=== PATIENT | male | born 1970 | race Caucasian/White ===

== ENCOUNTER 2019-06-27 23:38 | Emergency (ER) | payer OTHER, SELFPAY ==
[2019-06-27 23:40] VITALS: BP 170/107; PULSE 71; RESP 18; O2SAT 97
--- NOTE | 2019-06-27 23:46 | DI.RAD.S_ITS ---
PROCEDURE: XR SHOULDER LT MIN 2V INDICATIONS: possible dislocation TECHNIQUE: 2 views of the shoulder were acquired. COMPARISON: None. FINDINGS: Bones: Anterior shoulder dislocation and fracture involving at least the greater tuberosity. Soft tissues: No suspicious soft tissue calcifications. IMPRESSION: Left shoulder fracture dislocation as above. Dictated by: Catrachito Gill M.D. on 06/28/2019 at 8:17 Approved by: Catrachito Gill M.D. on 06/28/2019 at 8:19
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
--- NOTE | 2019-06-28 00:29 | DI.RAD.S_ITS ---
PROCEDURE: XR SHOULDER LT MIN 2V INDICATIONS: post reduction left shoulder dislocation TECHNIQUE: 2 views of the shoulder were acquired. COMPARISON: [facility], CR, XR SHOULDER LT MIN 2V, 06/28/2019, 0:07. FINDINGS: Bones: There has been successful reduction of the anterior subcoracoid left shoulder dislocation documented earlier same day. The fracture displacement has significantly reduced to near anatomic alignment. No suspicious bony lesions. Visualized ribs appear intact. Soft tissues: No suspicious soft tissue calcifications. IMPRESSION: Successful reduction of left shoulder dislocation, fracture displacement associated with impaction against the inferior glenoid margin has also significantly reduced to near anatomic alignment. Dictated by: Jose R Bergeron M.D. on 06/28/2019 at 9:02 Approved by: Jose R Bergeron M.D. on 06/28/2019 at 9:03
[2019-06-28] MEDS: propofoL 200 MG/20 ML VIAL 100 MG IV (01:24)
[2019-06-28 01:25] VITALS: BP 152/97; PULSE 81; RESP 21; O2SAT 97
[2019-06-28 01:36] VITALS: BP 164/84; PULSE 76; RESP 21; O2SAT 97
--- NOTE | 2019-06-28 01:39 | PC.NURSE ---
Procedural sedation done for left shoulder reduction. Pt tolerated well. 110mg propoful given in divided doses by Dr Cohen to achieve sedation.
[2019-06-28 01:48] VITALS: BP 138/79; PULSE 79; RESP 22; O2SAT 99
[2019-06-28 02:30] VITALS: BP 131/86; PULSE 78; RESP 18; O2SAT 98
== END 2019-06-28 02:40 | disposition home or self-care (01) ==
PROVIDERS: Emergency Provider Emergency Medicine
DX: S43.015A Anterior dislocation of left humerus, initial encounter (principal); S42.252A Displaced fracture of greater tuberosity of left humerus, initial encounter for closed fracture; F10.929 Alcohol use, unspecified with intoxication, unspecified; W19.XXXA Unspecified fall, initial encounter
CPT/HCPCS: 23665; 73030; 99285; 99291; J2704

== ENCOUNTER 2021-01-15 17:53 | Inpatient (IN) | payer OTHER, SELFPAY ==
[2021-01-15] VITALS (26 sets, daily range): BP systolic 104–154; BP diastolic 57–99; PULSE 57–192; RESP 22–30; TEMP 32.2–38; O2SAT 88–99; BMI 27.8
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
[2021-01-15 18:16] LABS: Add Manual Diff / Slide Review NO; Basophils Absolute Auto 100 /uL (0-100); Basophils Percent Auto 0.4 % (0-2); Eosinophils Absolute Auto 0 /uL (0-450); Hematocrit 46.8 % (41-53); Hemoglobin 15.4 g/dL (13.5-17.5); Lymphocytes Absolute Auto 1000 /uL (1100-4500); Lymphocytes Percent Auto 8.3 % (25-40); Mean Corpuscular HGB Conc 32.8 % (30-36); Mean Corpuscular Hemoglobin 31.3 PG (26-34); Mean Corpuscular Volume 95.4 fL (80-100); Monocytes Absolute Auto 1000 /uL (0-900); Monocytes Percent Auto 8.6 % (3-14); Neutrophils Absolute Auto 9600 /uL (1500-7000); Neutrophils Percent Auto 82.7 % (50-75); Platelet Count 305 X10^3/uL (150-400); Red Blood Cell Count 4.91 X10^6/uL (4.5-5.9); Red Cell Distribution Width 14.3 % (11.6-14.8); White Blood Cell Count 11.6 X10^3/uL (4.5-11.0)
[2021-01-15 18:21] LABS: Lactate (Lactic Acid) 5.7 mmol/L (0.7-2.1)
[2021-01-15 18:22] LABS: Alanine Aminotransferase 35 IU/L (<50); Albumin 4.3 g/dL (3.5-5.0); Albumin Globulin Ratio 1.6 (1.0-2.8); Alkaline Phosphatase 56 U/L (38-126); Aspartate Aminotransferase 154 IU/L (17-59); BUN Creatinine Ratio 25.6 (6-22); Bilirubin Total 0.3 mg/dL (0.2-1.3); Blood Urea Nitrogen 21 mg/dL (9-20); Carbon Dioxide 15 mmol/L (22-32); Chloride 120 mmol/L (98-107); Estimated Glomerular Filt Rate > 60.0 mL/min (>60); Ethanol (ETOH) 22 mg/dL; Globulin 2.7 g/dL (1.7-4.1); Glucose 49 mg/dL (70-100); HEMOLYSIS < 15 (0-50); Lipase 63 U/L (23-300); Potassium 4.5 mmol/L (3.4-5.1); Sodium 152 mmol/L (137-145)
[2021-01-15 18:32] LABS: Troponin I 0.115 ng/mL (0.01-0.034)
[2021-01-15] MEDS: LACTATED RINGERS 1,000 ML 1000 ML IV (18:34)
[2021-01-15 18:37] LABS: Creatine Kinase 7858 U/L (55-170)
[2021-01-15 18:45] LABS: CKMB % Relative Index 0.3 % (1.5-5.0)
--- NOTE | 2021-01-15 18:47 | PC.NURSE ---
for core temperature reading.
[2021-01-15 19:32] LABS: UR Morphine/Opiate cutoff 300 Negative (Negative); Ur Creatinine Normal (Normal); Ur Specific Gravity Normal (Normal); Urine Amphetamines Negative (Negative); Urine Barbiturates Negative (Negative); Urine Benzodiazepines Negative (Negative); Urine Cocaine Negative (Negative); Urine MDMA Negative (Negative); Urine Methadone Negative (Negative); Urine Methamphetamines Negative (Negative); Urine Oxycodone Negative (Negative); Urine Phencyclidine Negative (Negative); Urine Tetrahydrocannabinol Negative (Negative); Urine Tricyclic Antidepressant Negative (Negative); Urine pH Normal (Normal)
[2021-01-15 20:04] LABS: Reflexed Lactate in 2 Hours Y
[2021-01-15 20:14] LABS: COVID19 - ADMIT (NP swab/PCR) Negative (Negative)
[2021-01-15 20:38] LABS: INR 1.1 (0.9-1.3); Prothrombin Time 12.5 SECONDS (10.1-12.7)
[2021-01-15 20:40] LABS: PTT Partial Thromboplastin Tim 36 SECONDS (26.4-36.2)
[2021-01-15 20:43] LABS: Lactate 2HR (Lactic Acid Rflx) 2.8 mmol/L (0.7-2.1)
[2021-01-15] MEDS: LACTATED RINGERS 1,000 ML 150 ML IV (21:45)
[2021-01-15 22:52] LABS: Procalcitonin 73.8 ng/mL (<0.5)
--- NOTE | 2021-01-15 23:26 | DI.CT.S_ITS ---
PROCEDURE: CT HEAD/BRAIN WO CON INDICATIONS: confusion TECHNIQUE: Noncontrast 4.5 mm thick angled axial sections acquired from the foramen magnum to the vertex, with coronal and sagittal reformats. For radiation dose reduction, the following was used: automated exposure control, adjustment of mA and/or kV according to patient size. COMPARISON: None. FINDINGS: Image quality: Excellent. CSF spaces: Basal cisterns are patent. No extra-axial fluid collections. Ventricles are normal in size and shape. There is mild cerebral volume loss with prominence of the sulci and extra-axial spaces. Brain: No intracranial hemorrhage, mass, or mass effect. Hernandez-white matter interface appears preserved. Skull and face: Calvarium and visualized facial bones are intact, without suspicious lesions. Sinuses: Visualized sinuses demonstrated small air-fluid level in the right maxillary sinus. Remaining paranasal sinuses are clear. Mastoid air cells also appear clear. IMPRESSION: 1. No acute intracranial abnormality. 2. Mild cerebral volume loss. Dictated by: Long Hernandez M.D. on 01/16/2021 at 8:16 Approved by: Long Hernandez M.D. on 01/16/2021 at 8:18
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
[2021-01-16] VITALS (24 sets, daily range): BP systolic 101–125; BP diastolic 55–73; PULSE 56–75; RESP 16–33; TEMP 37.1–38.2; O2SAT 92–98
[2021-01-16 00:14] LABS: Transitional Epi Cells Urine 1-5/HPF (0-5/HPF); WBC Urine None Seen (0-5/HPF)
[2021-01-16 00:15] LABS: Renal Epithelial Cells Urine 0-1/HPF (0-1/HPF)
[2021-01-16 00:16] LABS: Bacteria Urine Occasional (0-1); Granular Casts Urine 1-5/LPF; Hyaline Casts Urine 0-1/LPF; Squamous Epithelial Cell Urine 0-1 /HPF (0-5/HPF)
[2021-01-16 00:17] LABS: Amorphous Sediment Urine 1+; Culture Indicated Urine Cult Not Indicated; Mucus Urine 2+ (Negative); RBC Urine 1-5/HPF (0-5/HPF)
[2021-01-16] MEDS: PIPERACILLIN/TAZO 4.5 GM in SODIUM CHLORIDE 0.9% 100 ML 25 ML IV (00:35)
[2021-01-16 01:12] LABS: Lactate (Lactic Acid) 2.4 mmol/L (0.7-2.1)
[2021-01-16 01:13] LABS: BUN Creatinine Ratio 23.9 (6-22); Blood Urea Nitrogen 22 mg/dL (9-20); Calcium 8.3 mg/dL (8.4-10.2); Carbon Dioxide 15 mmol/L (22-32); Chloride 117 mmol/L (98-107); Estimated Glomerular Filt Rate > 60.0 mL/min (>60); Glucose 87 mg/dL (70-100); HEMOLYSIS 15 (0-50); Magnesium 2.4 mg/dL (1.6-2.3); Phosphorous 4.2 mg/dL (2.5-4.5); Sodium 145 mmol/L (137-145)
[2021-01-16 01:17] LABS: Potassium 5.4 mmol/L (3.4-5.1)
[2021-01-16 01:28] LABS: Troponin I 0.245 ng/mL (0.01-0.034)
--- NOTE | 2021-01-16 01:35 | DI.ECHO.S_ITS ---
[place] +---------+ Hospital +---------+ : : [address] : : : : [phone] : : : : Phone: [phone] Echocardiogram Report + + :Name: CHADWICK PATHAK Study Date: 01/16/2021 Height: 69 in : :[facility] ReadingLocation: Weight: 188 lb : : Gender: Male BSA: 2.0 m2 : :: 1970 Age: 50 yrs BP: 113/64 mmHg: :Reason For Study: ELEVATED TROPONIN : :Ordering Physician: DMITRIY, : :RAJWINDER Performed By: Neisha Bravo : :Referring: RAJWINDER IZAGUIRRE : + + Interpretation Summary The left ventricle is normal in size and wall thickness. Left ventricular systolic function is normal. The ejection fraction is estimated to be 55-60%. There is possible mid/distal anterolateral hypokinesis. Diastolic parameters suggest probable normal left ventricular diastolic function and normal filling pressures. The right ventricle is borderline dilated. Right ventricular systolic function is at the lower limits of normal. Pulmonary artery pressures cannot be estimated because of the lack of a measurable TR jet velocity but the IVC suggests a CVP of around 15 mmHg. The left atrium is borderline dilated. Right atrial size is normal. There is no Doppler evidence for an interatrial shunt. The atrial septum is aneurysmal. There is no significant valvular heart disease. The aortic root is normal size. Procedure: A two-dimensional transthoracic echocardiogram with color flow and Doppler was performed. The study quality was technically adequate. A contrast injection of Definity was performed to improve assessment of LV function. There is no prior echocardiogram noted for this patient. The patient was in sinus rhythm with heart rates between 60-66 bpm during the exam. Left Ventricle: The left ventricle is normal in size and wall thickness. Left ventricular systolic function is normal. The ejection fraction is estimated to be 55-60%. There is possible mid/distal anterolateral hypokinesis. Diastolic parameters suggest probable normal left ventricular diastolic function and normal filling pressures. Right Ventricle: The right ventricle is borderline dilated. Right ventricular systolic function is at the lower limits of normal. Atria: The left atrium is borderline dilated. Right atrial size is normal. There is no Doppler evidence for an interatrial shunt. The atrial septum is aneurysmal. Mitral Valve: The mitral valve is normal in structure and function. There is trace mitral regurgitation. Aortic Valve: The aortic valve opens well. There is no aortic valve stenosis. No aortic regurgitation is present. Tricuspid Valve: The tricuspid valve is normal in structure and function. No tricuspid regurgitation. Pulmonary artery pressures cannot be estimated because of the lack of a measurable TR jet velocity but the IVC suggests a CVP of around 15 mmHg. Pulmonic Valve: The pulmonic valve is not well visualized. There is trace pulmonic regurgitation. There is no significant valvular heart disease. Great Vessels: The aortic root is normal size. The ascending aorta is at the upper limits of normal in size. The IVC is dilated (diameter is greater than 2.1 cm) and it collapses less than 50% with a sniff. This suggests a high right atrial pressure of 15 mm Hg. Pericardium/ Pleura There is no pericardial effusion. There is no pleural effusion. MMode/2D Measurements & Calculations LVIDd: 5.4 cm LVOT diam: 2.0 cm LVIDs: 3.2 cm Ao root diam: 3.7 cm FS: 40.1 % asc Aorta Diam: 3.4 cm IVSd: 0.98 cm Ao Arch Diam (Prox Trans): 3.0 cm LVPWd: 0.88 cm LV keyes. diameter/BSA (cm/m^2): 2.7 LV sys. diameter/BSA (cm/m^2): 1.6 LA A2 area: 22.0 cm2 RA long axis: 5.1 cm LA A4 area: 18.9 cm2 RA area: 18.2 cm2 LA length (vol): 5.1 cm RA vol: 54.8 ml LA vol: 68.6 ml RA : 27.3 ml/m2 LA vol index: 34.1 ml/m2 IVC diam: 2.3 cm RVD1 (basal): 4.0 cm TAPSE: 1.6 cm Doppler Measurements & Calculations Ao V2 max: 153.2 cm/sec LVOT Max Bhargav: 102.8 cm/sec Ao V2 mean: 104.9 cm/sec LV V1 max P.2 mmHg Ao max P.4 mmHg LV V1 VTI: 19.8 cm Ao mean P.0 mmHg BRAVO(I,D): 2.4 cm2 Ao V2 VTI: 27.2 cm BRAVO(V,D): 2.2 cm2 sev ratio: 0.73 BRAVO indexed to BSA (cm^2/m^2): 1.2 MV E max bhargav: 94.4 cm/sec TR max bhargav: 354.3 cm/sec MV A max bhargav: 53.9 cm/sec TR max P.2 mmHg MV E/A: 1.8 PA V2 max: 120.7 cm/sec Med Peak E' Bhargav: 9.1 cm/sec PA V2 mean: 73.1 cm/sec E/E' med: 10.4 PA mean P.4 mmHg Lat Peak E' Bhargav: 11.2 cm/sec PA pr(Accel): 51.6 mmHg E/E' lat: 8.4 E/e' average: 9.4 MV dec time: 0.13 sec SV(LVOT): 64.1 ml Reading Physician:08:47 AM
[2021-01-16] MEDS: ASPIRIN EC 325 MG TABLET PO (01:50)
[2021-01-16] MEDS: ACETAMINOPHEN 325 MG TABLET 650 MG PO (01:50)
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
[2021-01-16 03:03] LABS: Reflexed Lactate in 2 Hours Y
[2021-01-16 03:36] LABS: Lactate 2HR (Lactic Acid Rflx) 1.8 mmol/L (0.7-2.1)
[2021-01-16 03:50] LABS: Creatine Kinase 10919 U/L (55-170)
[2021-01-16 03:57] LABS: Troponin I 0.315 ng/mL (0.01-0.034)
[2021-01-16] MEDS: SODIUM CHLORIDE 0.9% 1,000 ML 200 ML IV (04:12)
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
[2021-01-16] MEDS: LACTATED RINGERS 1,000 ML 200 ML IV (06:10)
--- NOTE | 2021-01-16 07:00 | DI.RAD.S_ITS ---
PROCEDURE: XR CHEST 1V INDICATIONS: shortness of breath, tachypnic TECHNIQUE: One view of the chest was acquired. COMPARISON: [facility], CR, XR CHEST 1V, 01/15/2021, 18:01. FINDINGS: Surgical changes and devices: None. Lungs and pleura: Bilateral pulmonary opacities, slightly worse compared to prior exam. Mediastinum: Mediastinal contours appear normal. Heart size is mildly prominent. Bones and chest wall: No suspicious bony lesions. Overlying soft tissues appear unremarkable. IMPRESSION: Slight interval worsening bilateral pulmonary opacities most consistent with pneumonia. Underlying areas of atelectasis and/or edema cannot be excluded. Dictated by: Ruba Wagner M.D. on 01/16/2021 at 10:25 Approved by: Ruba Wagner M.D. on 01/16/2021 at 10:26
--- NOTE | 2021-01-16 07:23 | PC.NURSE ---
01/16/2021 0713 Captain Cam Castillo updated via phone (after HIPPA cleared by patient) by this nurse and patient's .
[2021-01-16 09:53] LABS: Hematocrit 37.5 % (41-53); Hemoglobin 12.3 g/dL (13.5-17.5); Mean Corpuscular HGB Conc 32.8 % (30-36); Mean Corpuscular Hemoglobin 30.8 PG (26-34); Mean Corpuscular Volume 94.1 fL (80-100); Platelet Count 205 X10^3/uL (150-400); Red Blood Cell Count 3.99 X10^6/uL (4.5-5.9); Red Cell Distribution Width 14.1 % (11.6-14.8); White Blood Cell Count 14.4 X10^3/uL (4.5-11.0)
[2021-01-16 10:19] LABS: BUN Creatinine Ratio 24.1 (6-22); Blood Urea Nitrogen 21 mg/dL (9-20); Calcium 8.5 mg/dL (8.4-10.2); Carbon Dioxide 14 mmol/L (22-32); Chloride 114 mmol/L (98-107); Estimated Glomerular Filt Rate > 60.0 mL/min (>60); Glucose 104 mg/dL (70-100); HEMOLYSIS 21 (0-50); Magnesium 2.3 mg/dL (1.6-2.3); Potassium 4.6 mmol/L (3.4-5.1); Sodium 139 mmol/L (137-145)
--- NOTE | 2021-01-16 10:30 | PM.ICURNDS ---
- Date Patient Seen: 01/16/21 Time Patient Seen: 10:30 :: This patient was seen via real time interactive two-way audiovisual telecommunication. NOTE THAT PATIENT WAS SEEN ON THIS CALENDAR DAY BY MY PARTNER, DR. ROA, THEREFORE, THIS NOTE TEMPLATE WAS USED Labs, orders reviewed. Lactate has normalized. Comfortable and sleeping on camera. On RA. Normothermic. CK has risen and he is hypernatremic; on LR @ 200 mL/hr. Would continue the current management; OK to downgrade to acute care. Discussed with RN and Dr. Capps.
[2021-01-16] MEDS: PIPERACILLIN/TAZO 3.375 GM in SODIUM CHLORIDE 0.9% 100 ML 25 ML IV ×2 (10:59→17:52)
[2021-01-16] MEDS: ENOXAPARIN 80 MG/0.8 ML SYRINGE SUBCUT (11:01)
[2021-01-16] MEDS: LACTATED RINGERS 1,000 ML 125 ML IV (11:34)
[2021-01-16 14:38] LABS: Troponin I 0.334 ng/mL (0.01-0.034)
--- NOTE | 2021-01-16 14:44 | PC.NURSE ---
PT REPORTS NO PAIN OTHER THAN UPON DEEP INSPIRATION, CONTINUED ZOSYN FOR PNA R/T ASPIRATION SEA H20- TROPONINS CONTINUE TO INCREASE AND WILL BE MONITORING FREQ- LUNGS DIM BUT CLEAR - NOT REQUIRING ANY O2 @ THIS TIME- DECLINED TO HAVE HAWK REMOVED AT THIS TIME- HE REMAINS WEAK AND WITH MINIMAL CONVERSATION- SOMEWHAT FLAT AFFECT - AT BEDSIDE
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
[2021-01-16 18:02] LABS: Creatine Kinase 11603 U/L (55-170)
[2021-01-16 18:12] LABS: Troponin I 0.276 ng/mL (0.01-0.034)
--- NOTE | 2021-01-16 18:40 | PC.NURSE ---
Evening shift note: A/O x4 VSS, adan patent and draining urine, pt being moved to room 209, report given to BLAIR Sampson, no further patient contact.
[2021-01-16] MEDS: LACTATED RINGERS 1,000 ML 150 ML IV (20:07)
[2021-01-17 00:29] VITALS: BP 124/80; PULSE 75; RESP 16; TEMP 36.1; O2SAT 95
[2021-01-17] MEDS: PIPERACILLIN/TAZO 3.375 GM in SODIUM CHLORIDE 0.9% 100 ML 25 ML IV ×3 (01:43→18:04)
[2021-01-17] MEDS: SODIUM CHLORIDE 0.9% 250 ML 21 ML IV (01:43)
[2021-01-17] MEDS: LACTATED RINGERS 1,000 ML 150 ML IV (02:34)
[2021-01-17 05:33] VITALS: BP 124/75; PULSE 80; RESP 16; TEMP 37.4; O2SAT 95
[2021-01-17 05:59] LABS: Add Manual Diff / Slide Review NO; Basophils Absolute Auto 0 /uL (0-100); Basophils Percent Auto 0.4 % (0-2); Eosinophils Absolute Auto 0 /uL (0-450); Hematocrit 34.5 % (41-53); Hemoglobin 11.5 g/dL (13.5-17.5); Lymphocytes Absolute Auto 1200 /uL (1100-4500); Lymphocytes Percent Auto 9.8 % (25-40); Mean Corpuscular HGB Conc 33.2 % (30-36); Mean Corpuscular Hemoglobin 30.6 PG (26-34); Mean Corpuscular Volume 92.1 fL (80-100); Monocytes Absolute Auto 800 /uL (0-900); Monocytes Percent Auto 6.4 % (3-14); Neutrophils Absolute Auto 10500 /uL (1500-7000); Neutrophils Percent Auto 83.4 % (50-75); Platelet Count 167 X10^3/uL (150-400); Red Blood Cell Count 3.75 X10^6/uL (4.5-5.9); White Blood Cell Count 12.6 X10^3/uL (4.5-11.0)
[2021-01-17 06:01] LABS: Alanine Aminotransferase 68 IU/L (<50); Albumin 3.2 g/dL (3.5-5.0); Albumin Globulin Ratio 1.2 (1.0-2.8); Alkaline Phosphatase 35 U/L (38-126); Aspartate Aminotransferase 300 IU/L (17-59); BUN Creatinine Ratio 17.1 (6-22); Bilirubin Total 0.8 mg/dL (0.2-1.3); Blood Urea Nitrogen 13 mg/dL (9-20); Calcium 8.6 mg/dL (8.4-10.2); Carbon Dioxide 26 mmol/L (22-32); Chloride 109 mmol/L (98-107); Estimated Glomerular Filt Rate > 60.0 mL/min (>60); Globulin 2.6 g/dL (1.7-4.1); Glucose 103 mg/dL (70-100); HEMOLYSIS < 15 (0-50); Potassium 4.1 mmol/L (3.4-5.1); Sodium 139 mmol/L (137-145); Total Protein 5.8 g/dL (6.3-8.2)
[2021-01-17 06:32] LABS: Creatine Kinase 9347 U/L (55-170)
[2021-01-17 06:33] LABS: Troponin I 0.137 ng/mL (0.01-0.034)
[2021-01-17] MEDS: ENOXAPARIN 40 MG/0.4 ML SYRINGE SUBCUT (08:23)
[2021-01-17] MEDS: ASPIRIN EC 81 MG TABLET PO (08:24)
[2021-01-17 09:19] VITALS: BP 123/81; PULSE 68; RESP 16; TEMP 36.3; O2SAT 97
[2021-01-17 12:37] VITALS: BP 134/87; PULSE 64; RESP 16; TEMP 36.6; O2SAT 98
[2021-01-17] MEDS: FUROSEMIDE 20 MG/2 ML VIAL IV (14:00)
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
[2021-01-17 15:35] VITALS: BP 121/80; PULSE 70; RESP 16; TEMP 36.7; O2SAT 99
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
[2021-01-17 22:30] VITALS: BP 118/77; PULSE 67; RESP 16; TEMP 37.1
[2021-01-18 00:26] VITALS: BP 117/80; PULSE 67; RESP 17; TEMP 36.4; O2SAT 96
[2021-01-18] MEDS: PIPERACILLIN/TAZO 3.375 GM in SODIUM CHLORIDE 0.9% 100 ML 25 ML IV ×3 (01:20→17:17)
[2021-01-18] MEDS: SODIUM CHLORIDE 0.9% 250 ML 21 ML IV (01:21)
[2021-01-18] MEDS: LACTATED RINGERS 1,000 ML 150 ML IV (02:32)
[2021-01-18 06:00] VITALS: BP 118/80; PULSE 62; RESP 16; TEMP 36.4; O2SAT 96
[2021-01-18 07:15] LABS: Hematocrit 35.8 % (41-53); Hemoglobin 11.9 g/dL (13.5-17.5); Mean Corpuscular HGB Conc 33.1 % (30-36); Mean Corpuscular Hemoglobin 30.8 PG (26-34); Mean Corpuscular Volume 92.9 fL (80-100); Platelet Count 177 X10^3/uL (150-400); Red Blood Cell Count 3.85 X10^6/uL (4.5-5.9); Red Cell Distribution Width 13.8 % (11.6-14.8); White Blood Cell Count 9.7 X10^3/uL (4.5-11.0)
[2021-01-18 07:24] LABS: Alanine Aminotransferase 70 IU/L (<50); Albumin 3.3 g/dL (3.5-5.0); Albumin Globulin Ratio 1.1 (1.0-2.8); Alkaline Phosphatase 38 U/L (38-126); Aspartate Aminotransferase 200 IU/L (17-59); Bilirubin Total 1.1 mg/dL (0.2-1.3); Blood Urea Nitrogen 12 mg/dL (9-20); Calcium 9.1 mg/dL (8.4-10.2); Carbon Dioxide 32 mmol/L (22-32); Chloride 105 mmol/L (98-107); Estimated Glomerular Filt Rate > 60.0 mL/min (>60); Globulin 2.9 g/dL (1.7-4.1); Glucose 98 mg/dL (70-100); HEMOLYSIS < 15 (0-50); Potassium 3.9 mmol/L (3.4-5.1); Sodium 140 mmol/L (137-145); Total Protein 6.2 g/dL (6.3-8.2)
[2021-01-18 07:32] LABS: Creatine Kinase 2537 U/L (55-170)
[2021-01-18 07:41] LABS: Procalcitonin 21.8 ng/mL (<0.5)
[2021-01-18] MEDS: ENOXAPARIN 40 MG/0.4 ML SYRINGE SUBCUT (08:36)
[2021-01-18] MEDS: ASPIRIN EC 81 MG TABLET PO (08:36)
[2021-01-18 08:46] VITALS: BP 106/65; PULSE 65; RESP 17; TEMP 36.6; O2SAT 94
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
[2021-01-18] MEDS: FUROSEMIDE 40 MG/4 ML VIAL IV (12:26)
[2021-01-18 15:07] VITALS: BP 104/75; PULSE 68; RESP 17; TEMP 36.6; O2SAT 94
[2021-01-18 15:25] VITALS: BP 115/82; PULSE 70; RESP 18; TEMP 36.8; O2SAT 93
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
[2021-01-18 23:56] VITALS: BP 117/72; PULSE 68; RESP 19; TEMP 36.8; O2SAT 92
[2021-01-19] MEDS: PIPERACILLIN/TAZO 3.375 GM in SODIUM CHLORIDE 0.9% 100 ML 25 ML IV ×2 (01:04→08:27)
[2021-01-19 04:35] VITALS: BP 115/75; PULSE 64; RESP 19; TEMP 36.3; O2SAT 95
[2021-01-19 06:38] LABS: BUN Creatinine Ratio 14.3 (6-22); Blood Urea Nitrogen 13 mg/dL (9-20); Calcium 9.4 mg/dL (8.4-10.2); Carbon Dioxide 33 mmol/L (22-32); Chloride 104 mmol/L (98-107); Creatine Kinase 951 U/L (55-170); Estimated Glomerular Filt Rate > 60.0 mL/min (>60); Glucose 112 mg/dL (70-100); HEMOLYSIS < 15 (0-50); Potassium 3.8 mmol/L (3.4-5.1); Sodium 140 mmol/L (137-145)
[2021-01-19 07:40] VITALS: BP 117/76; PULSE 67; RESP 16; TEMP 36.5; O2SAT 94
--- NOTE | 2021-01-19 07:55 | PC.NURSE ---
Addendum entered by Michelle Grande R.N. 01/19/21 13:50: Patient given discharge instructions regarding f/u appointment, continuation of abx, s/s of worsening condition and infection. Patient and spouse verbalized understanding. Patient given Rx, denied belongings in safe or pharmacy. IV removed after Zosyn completed. Patient tolerated. Denies further questions or needs. Discharged via wheelchair. Original Note: Patient resting in bed, A/O x 3, denies general pain, does report upper chest pain with deep inhalation, lungs CTA, 94% on RA, RRR, VSS. Saline locked except for intermittent IV ABX. Patient's adan removed, patient tolerated. Instructed to call after first void. Patient verbalizes understanding. Urinal placed within reach. SCD's on. remains bedside. Denies further needs at this time. Call light in reach.
[2021-01-19] MEDS: ENOXAPARIN 40 MG/0.4 ML SYRINGE SUBCUT (08:27)
[2021-01-19] MEDS: ASPIRIN EC 81 MG TABLET PO (08:30)
[2021-01-19 11:10] VITALS: BP 116/72; PULSE 66; RESP 18; TEMP 37; O2SAT 94
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
== END 2021-01-19 13:40 | disposition home or self-care (01) | DRG 922 ==
LOC: ED 19:13 → AC 19:16 → ICU 20:50 → AC 01-16 17:01
PROVIDERS: Internal Medicine; Admitting Provider Internal Medicine; Emergency Provider Emergency Medicine; Referring Provider Emergency Medicine; Visit Provider Internal Medicine
DX: T68.XXXA Hypothermia, initial encounter (principal); J96.01 Acute respiratory failure with hypoxia; J69.0 Pneumonitis due to inhalation of food and vomit; I21.A1 Myocardial infarction type 2; E87.0 Hyperosmolality and hypernatremia; M62.82 Rhabdomyolysis; E87.2 Acidosis; I10 Essential (primary) hypertension; E86.0 Dehydration; X31.XXXA Exposure to excessive natural cold, initial encounter; Y93.11 Activity, swimming; Z20.822 Contact with and (suspected) exposure to COVID-19
CPT/HCPCS: 36415; 70450; 71045; 80048; 80053; 80076; 80305; 80320; 81003; 81015; 82550; 82553; 82962; 83605; 83690; 83735; 84100; 84145; 84484; 85025; 85027; 85610; 85730; 86850; 86900; 86901; 87040; 87070; 87205; 87635; 93005; 93306; 96361; 99285; 99291; C9803; J1650; J1940; J2543

== ENCOUNTER 2022-11-11 14:38 | Emergency (ER) | payer OTHER, SELFPAY ==
[2021-01-15 20:45] VITALS: BMI 27.8
[2022-11-11 14:51] VITALS: BP 135/89; PULSE 92; RESP 17; TEMP 36.6; O2SAT 96; BMI 27.6
--- NOTE | 2022-11-11 16:29 | ED_ITS ---
HPI - Skin/Abscess/Foreign Bdy <Veronica Harris PA-C - Last Filed: 11/11/22 16:43> General Chief complaint: Skin/Abscess/Foreign Body Stated complaint: RED SWOLLEN BACK/(LYPOLMA) Time Seen by Provider: 11/11/22 15:46 Source: patient Mode of arrival: Ambulatory History of Present Illness HPI narrative: 52-year-old male presents with concern for possible infection on his left lower scapula at a site where he has been told he has a lipoma that has been present for over 20 years. Patient states it is never been infected before. For the past week or so he noticed it became a little bit more swollen and irritated and bothersome and then in the past few days he is noticed it as be been becoming red and increasingly swollen and raised. It has been tender when he has been driving and leaning against it in the car but has not been severely painful has not had any drainage. He denies any recent fevers, chills, nausea, vomiting, change in appetite or any other symptoms and has otherwise been in his usual [facility]. Related Data Home Medications Medication Instructions Recorded Confirmed lisinopril 10 mg tablet 10 mg PO DAILY 01/15/21 01/15/21 Previous Rx's Medication Instructions Recorded doxycycline hyclate 100 mg capsule 100 mg PO BID abscess and 11/11/22 cellulitis 10 days #20 caps Allergies Allergy/AdvReac Type Severity Reaction Status Date / Time No Known Drug Allergies Allergy Verified 11/11/22 14:51 Review of Systems <Veronica Harris PA-C - Last Filed: 11/11/22 16:43> Review of Systems Narrative: See HPI Patient History <Veronica Harris PA-C - Last Filed: 11/11/22 16:43> Medical History Patient denies medical problems Social History household members: significant other Smoking Status: Never smoker alcohol intake: current Smoking Status: Never smoker alcohol intake frequency: a few times a week Substance Use Type: does not use Exam <Veronica Harris PA-C - Last Filed: 11/11/22 16:43> Narrative Exam Narrative: GENERAL: 52 year old patient appears stated age. Well-developed patient, in mild distress. HEAD: Atraumatic. Normocephalic. EYES: Pupils equal round and reactive. Extraocular motions intact. No scleral icterus. No injection or drainage. ENT: Nose without bleeding, purulent drainage. Airway patent. NECK: Trachea midline. CARDIOVASCULAR: Regular rate and rhythm without murmurs, gallops, or rubs. RESPIRATORY: Clear to auscultation. Breath sounds equal bilaterally. No wheezes, rales, or rhonchi. GASTROINTESTINAL: Abdomen soft, non-tender, nondistended. EXTREMITIES: No edema or joint tenderness. BACK: Over the left inferior scapula there is an area of erythema that is 7 x 10 cm with a central raised fluctuant mass that is a 2-1/2 x 2-1/2 cm. The area is mildly tender, otherwise back is Nontender without deformity or crepitance. No flank tenderness. NEURO: AOx3. SKIN: No rash or erythema of visible areas Initial Vital Signs Initial Vital Signs: Vital Signs Temperature 97.9 F 11/11/22 14:51 Pulse Rate 92 H 11/11/22 14:51 Respiratory Rate 17 11/11/22 14:51 Blood Pressure 135/89 11/11/22 14:51 Pulse Oximetry 96 11/11/22 14:51 Oxygen Delivery Method Room Air 11/11/22 14:51 <Russ Silva DO - Last Filed: 11/11/22 19:00> Initial Vital Signs Initial Vital Signs: Vital Signs Temperature 97.9 F 11/11/22 14:51 Pulse Rate 92 H 11/11/22 14:51 Respiratory Rate 17 11/11/22 14:51 Blood Pressure 135/89 11/11/22 14:51 Pulse Oximetry 96 11/11/22 14:51 Oxygen Delivery Method Room Air 11/11/22 14:51 Procedures <Veroniac Harris PA-C - Last Filed: 11/11/22 16:43> Abscess I/D I&D #1: Time of procedure: 15:55 Site: back (Left inferior scapula) Side (if applicable): left Local Anesthetic: lidocaine 2% Amount of anesthesia used (mL): 3 Technique: incised with #11 blade Amount of fluid expressed (mL): 10 Irrigation: Yes (50cc) Packing used?: iodoform (1/4 inch) Complications: other (none) Course <Veronica Harris PA-C - Last Filed: 11/11/22 16:43> Orders Ordered: ED Orders 11/11/22 15:50 Wound Culture and Gram Stain Stat Vital Signs Vital signs: Vital Signs - 8 hr 11/11/22 14:51 11/11/22 16:45 Temperature 97.9 F Pulse Rate 92 H 72 Respiratory Rate 17 16 Blood Pressure 135/89 128/76 Pulse Oximetry 96 98 Oxygen Delivery Method Room Air Room Air <Russ Silva DO - Last Filed: 11/11/22 19:00> Orders Ordered: ED Orders 11/11/22 15:50 Wound Culture and Gram Stain Stat Vital Signs Vital signs: Vital Signs - 8 hr 11/11/22 14:51 11/11/22 16:45 Temperature 97.9 F Pulse Rate 92 H 72 Respiratory Rate 17 16 Blood Pressure 135/89 128/76 Pulse Oximetry 96 98 Oxygen Delivery Method Room Air Room Air MDM - Skin/Abscess/Foreign Bdy <Veronica Harris PA-C - Last Filed: 11/11/22 16:43> Differential Diagnosis Differential diagnosis: Likely abscess of skin or subcutaneous tissue and other (Sebaceous cyst, infected lipoma, cellulitis, abscess) Treatment and disposition Shared decision making:: Shared decision-making was used in determining plan for the patient including I and D in the emergency department antibiotics with o utpatient follow-up MDM Narrative Medical decision making narrative: This is a well-appearing 52-year-old male who presents with concern for possible infection/abscess in an area that has previously been diagnosed as a lipoma on his left shoulder blade. Exam today is consistent with abscess with fluctuance and erythema surrounding the region, and I and D is performed with copious Casseous and purulent foul-smelling material expressed, the areas irrigated and packed with iodoform quarter-inch gauze approximately 4 in. Labs are not obtained today as patient has not had any concerning symptoms for generalized infection and is generally well-appearing, did probation counselor the patient regarding return precautions advised to come back for wound recheck and having packing removed at urgent care primary care or emergency in 2-3 days' time. Placed the patient on doxycycline pending wound culture results. Return precautions provided, follow-up plan discussed, all questions answered. Discharge Plan Departure Patient Disposition: Home Clinical Impression: Abscess or cellulitis of back Instructions: DI for Skin Abscess Activity Restrictions/Additional Instructions: *You have been diagnosed with [skin infection/abscess] *What to do: *Please continue to take your regular medications as directed. [1 ] New medication prescriptions sent to your pharmacy: [ doxycycline] [ ] New medication written as a paper prescription [ ] No new medications given *Please follow up with your primary care provider in 2-3 days, call for an appointment. Let them know you were seen in the Emergency Department and that we ask that you be seen in follow up. We will electronically transmit a record of today's note if your PCP is in our system. We performed an incision and drainage today after cleaning the area of your infection/abscess and numbing it with lidocaine, we did do a wound culture today to further evaluate what kind of bacteria may be causing the problem. I am placing you on antibiotics, doxycyc line please take the entire prescription even if you are feeling better. Because we placed packing today you will need to have this removed in 48-72 hours and you can have the wound re-evaluated at that time, I think it is unlikely you will need to have this repacked but you should at least have it looked at again and have the packing removed in a healthcare setting this could be with your primary care, in urgent care or in the emergency department. *If you do not have a primary care provider please contact the [facility] Resource line at [phone]. They will ask some questions about your medical history and help get you set up with a doctor in the community. *Return to Emergency Department if you should have any new, worsening or concerning symptoms, such as [fever greater than 101 F, shaking chills, worsening pain, persistent vomiting or other bothersome symptoms] Prescriptions: New doxycycline hyclate 100 mg capsule 100 mg PO BID 10 Days Qty: 20 0RF Discontinued levofloxacin 750 mg tablet 750 mg PO DAILY Qty: 5 0RF doxycycline monohydrate 100 mg tablet 100 mg PO BID Qty: 10 0RF No Action lisinopril 10 mg tablet 10 mg PO DAILY Stand Alone Forms: Patient Portal/API <Russ Silva, - Last Filed: 11/11/22 19:00> Cosign ED Attending Jeri Attestation: I was immediately available in the department for consultation. Documentation has been reviewed. I agree with assessment and plan.
[2022-11-11 16:45] VITALS: BP 128/76; PULSE 72; RESP 16; O2SAT 98
== END 2022-11-11 16:45 | disposition home or self-care (01) ==
PROVIDERS: Emergency Provider Student in an Organized Health Care Education/Training Program
DX: L02.212 Cutaneous abscess of back [any part, except buttock and flank] (principal)
CPT/HCPCS: 10060; 87070; 87075; 87077; 87205; 99283